=== PATIENT | female | born 1975 | race Two or more races ===

== ENCOUNTER → 2023-09-19 07:32 | Outpatient (CLI) | payer OTHER | END | disposition home or self-care (01) | LOC: NUCLEAR 06:00 | PROVIDERS: ATTEND Internal Medicine Rheumatology | DX: M25.50 Pain in unspecified joint (principal) ==

== ENCOUNTER 2024-06-23 10:34 | Emergency (ER) | payer OTHER ==
[~2024-06-23] VITALS: Ht 160 cm; Wt 63.5 kg
[2024-06-23] MEDS ORDERED: MEDROL4 MG PO (11:06)
[2024-06-23 14:25] LABS: HEMATOCRIT 37.4 % (36.0-45.00); HEMOGLOBIN 12.5 g/dL (12.0-15.00); MEAN CORPUSCULAR HEMOGLOBIN 30.8 pg (27.00-32.0); MEAN CORPUSCULAR HGB CONC 33.5 g/dl (32.0-36.0); PLATELET COUNT 219 K/uL (150-450); RED BLOOD COUNT 4.07 M/uL (4.00-6.00); RED CELL DISTRIBUTION WIDTH 14.3 % (11.5-14.5)
[2024-06-23 14:39] LABS: COVID-19 AG NEGATIVE (NEGATIVE)
[2024-06-23 14:45] LABS: INFLUENZA A AG NEGATIVE (NEGATIVE)
[2024-06-23] MEDS ORDERED: KETOROLAC TROMETHAMINE 60 MG VIAL IM ONE ×2 (15:43→15:45)
== END 2024-06-23 16:33 ==
LOC: ER 10:35
PROVIDERS: General Practice
DX: B34.9 Viral infection, unspecified (principal); J04.0 Acute laryngitis; H92.01 Otalgia, right ear; Z20.822 Contact with and (suspected) exposure to COVID-19